=== PATIENT | female | born 1995 | race African-American/Black ===

== ENCOUNTER 2016-04-27 02:55 | Emergency (ER) | payer OTHER ==
[~2016-04-27] VITALS: Ht 170.2 cm; Wt 80.0 kg
[2016-04-27 03:00] VITALS: Ht 170.2 cm; Wt 80.0 kg
[2016-04-27] MEDS ORDERED: BUPIVACAINE 0.5 % 5 MG/1 ML MPF 30ML VIAL INFIL ONE (04:15)
[2016-04-27] MEDS ORDERED: XYLOCAINE 1%/SOD BICARB 20 ML VIAL INFIL ONE (04:15)
[2016-04-27] MEDS ORDERED: CEPHALEXIN 500MG HOME PACK 1 EA BTL PO ONE (07:00)
[2016-04-27] MEDS ORDERED: CEPHALEXIN MONOHYDRATE 250 MG CAP PO ONE (07:00)
[2016-04-27] MEDS ORDERED: NORCO 5/325MG HOME PACK PO ONE (07:00)
[2016-04-27] MEDS ORDERED: HYDR-5688 PO (07:07)
[2016-04-27] MEDS ORDERED: CEPH500C PO (07:07)
--- NOTE | 2016-04-27 07:09 | EMERGENCY ROOM VISIT NOTE ---
History First contact with patient: 04:05 Chief Complaint: FINGER PAIN Stated Complaint: FINGER INJURY History of Present Illness The patient is a 20 year old female who presents to the Emergency Department by private vehicle for evaluation of an injury to the LEFT middle finger. She reports that her fingertip became caught in the posterior aspect of the door resulting in laceration in injury. She reports a moderate amount of pain to the tip of the finger rates her pain a 10/10. She denies any other pain or injury to the affected finger. She reports no history of injury to this affected digit. Her tetanus status is up-to-date. She denies any associated hand pain, wrist pain, or forearm pain. The patient does admit to drinking alcohol today. She denies any other drug use. Review of Systems A complete 10-point Review of Systems was discussed with the patient, with pertinent positives and negatives listed in the History of Present Illness. All remaining Review of Systems questions can be considered negative unless otherwise specified. Social History Smoking Status: Current Some Day Smoker Smokeless Tobacco Use: No Alcohol Use: occasionally Drug Use: none Marital Status: single Housing Status: lives with roommate Occupation Status: [employer] student Current/Historical Medications Scheduled Cephalexin Monohydrate (Keflex), 500 MG PO QID Scheduled PRN Hydrocodone/Acetaminophen 5MG/325MG (Yaphank 5MG/325MG), 1-2 TABLET PO Q4H PRN for Pain Allergies Coded Allergies: No Known Allergies (Unverified , 04/27/16) Physical Exam Vital Signs Date Time Temp Pulse Resp B/P Pulse Ox O2 Delivery O2 Flow Rate FiO2 04/27/16 07:19 100 16 136/91 99 04/27/16 05:12 104 18 141/86 100 Room Air 04/27/16 03:00 125 24 157/99 98 Room Air Pain Rating (0-10): 10 Physical Exam VITAL SIGNS - Vital signs and nursing notes were reviewed. GENERAL - 20-year-old female appearing her stated age and in noticeable discomfort throughout the exam. Smells of alcohol. MUSCULOSKELETAL -laceration with partial palpitation noted to the tip of the LEFT third digit with transection through the midportion of the nail. Laceration measures a total of 2.5 cm and includes the nailbed. The tip of the finger flaps open. No deep structures appreciated. Moderately tender to palpation. Full range of motion at all joints appreciated. NEUROLOGIC - SENSORY: Spinothalamic tract was found to be intact with ability to discriminate sharp versus dull sensation at the level of the LEFT elbow down to the fingertips. No sensory deficits of the dorsal column were appreciated utilizing light touch for evaluation. VASCULAR - Capillary refill was brisk. +3/5 radial pulse palpated. Medical Decision & Procedures ER Provider Diagnostic Interpretation: Radiological imaging and reports were reviewed by myself. Radiologist's Interpretation as follows: LEFT THIRD FINGER 3 VIEWS CLINICAL HISTORY: Left third finger pain status post trauma COMPARISON: None. DISCUSSION: There is acute displaced fracture involving the tuft of the distal phalanx. The distal fragment is volarly displaced x 2 mm. There is an overlying soft tissue injury. The fine bony details obscured by an overlying bandage IMPRESSION: Acute displaced fracture involving the tuft of the distal phalanx. Medications Administered Medications (Trade) Dose Ordered Sig/Tali Route Start Time Stop Time Status Last Admin Dose Admin Cephalexin Monohydrate (Keflex Cap) 500 mg NOW ONCE PO 04/27/16 07:00 04/27/16 07:01 DC 04/27/16 07:17 500 MG Procedure Costs and benefits of performing primary wound closure versus no repair were discussed with the patient who verbalizes understanding. Verbal consent was obtained prior to performing the procedure. 5.0 cc of a 1-1 solution of 1% buffered lidocaine and 0.5% Marcaine was used to perform a digital block of the LEFT third digit. The wound was cleansed and prepped in the typical sterile fashion utilizing normal saline and Betadine. The wound was sterilely draped. Once proper anesthetization was established, the wound was further examined and demonstrated a laceration described above. No bony structures appreciated. The nail was removed first. The wound was copiously irrigated utilizing normal saline and Betadine. The nailbed was repaired using 5 simple interrupted 5-0 Vicryl sutures. The remaining laceration was repaired using 8 simple interrupted 5-0 nylon sutures with the edges well approximated. A sterile silver wrapper was used to insert into the nail matrix and tacked into place using 4 simple interrupted 5-0 nylon sutures. Patient tolerated the procedure well. No complications were met. The wound was cleansed and dressed with a Bacitracin dressing. A metal splint was applied to the finger for comfort. ED Course Patient was seen and evaluated by myself. X-ray was obtained of the affected finger. Digital block was performed and laceration repair was performed as described above. The patient was treated with Keflex. I discussed the case with Dr. Butler who happens to be corrections lieutenant for surgery. The patient will follow-up in office for any possible need for intervention. Patient was educated on worrisome symptoms for return visit to the emergency department. Patient discharged home in good condition. Medical Decision Given the patient's presentation and exam findings, I did elect to perform the above-mentioned workup. The patient presents stating with partial limitation of the tip of the LEFT third digit. Thankfully, the laceration was repaired and well approximated. She was covered with antibiotics after copious irrigation of the wound. She will follow-up with orthopedic hand surgery this week for recheck. She will return for any changing/worsening symptoms. Patient discharged home in good condition. In the evaluation and treatment of this patient, the following differential diagnoses were considered: Finger Fracture, Finger Dislocation, Finger Sprain, Finger Contusion, Jersey Finger, or Mallet Finger. Impression Primary Impression: Partial traumatic transphalangeal amputation of left middle finger, initial encounter Departure Information Dispostion Home / Self-Care Condition GOOD Prescriptions Hydrocodone/Acetaminophen 5MG/325MG (Yaphank 5MG/325MG) Tab 1-2 TABLET PO Q4H Y for Pain, #20 TAB For Initial Treatment Prov: Abel Gallagher PA-C 04/27/16 Cephalexin Monohydrate (Keflex) 500 Mg Cap 500 MG PO QID for 7 Days, #28 CAP Prov: Abel Gallagher PA-C 04/27/16 Referrals No Doctor, Assigned (PCP) Fabricio Butler MD Patient Instructions ED Laceration Amputation Finger Tip Open Tx, My [facility] Additional Instructions You have received 8 sutures on your LEFT Middle Finger. These sutures are NOT dissolvable and WILL need to be removed by a health care provider in 14 days. You can return to the Emergency Department or contact your Primary Care Provider to have the sutures removed. You NEED to follow-up with Dr. Butler of Orthopedic Hand Surgery for continued management of your injury. Please wear the splint for comfort until the sutures are removed. Proper wound care is essential for adequate wound healing and infection prevention. You can shower and clean the wound with soap and water. Do not scour over the wound, pat dry with a towel. Do not submerse the wound (i.e. bathe or dish wash) until the sutures have been removed. You can use an antibiotic ointment with a dressing over the wound for the next 3-4 days. After this time you may leave the wound dry and open to the air. If crust develops over the wound you can use a Q-tip to apply a 1:1 peroxide:water solution to clean the wound. Look for signs of infection of the wound including: increased pain, swelling, foul discharge, streaking, or increased temperature. If any of these are noticed you should return to the Emergency Department for further assessment and treatment. As with any laceration you may have received nerve damage to the surrounding tissues. This damage may or may not be permanent. You should keep the area covered with sunscreen for the first 6 months to 1 year when at risk for exposure to help minimize scarring. You can also use scar reducing creams or Vitamin E oil to help minimize scarring. You have been prescribed Yaphank to be used for pain control. This is a narcotic medication. You cannot drive or consume alcohol while on this medicine. This medicine should only be used for pain that cannot be controlled with over-the- counter pain medicines. You were prescribed Keflex to be taken as prescribed. This is an antibiotic. All antibiotics have the potential to cause diarrhea. Stop this medication and contact a medical provider if you were to develop any significant adverse side effects including: wheezing, shortness of breath, passing out, vomiting, or a diffuse rash. Always take antibiotics as directed and COMPLETE the ENTIRE course regardless of the improvement of your symptoms. For pain control, you can use the following [id number] medicines (if >12 yo): - Regular strength (325mg/tab) Tylenol (acetaminophen) 2 tabs every 4-6 hours as needed. Do not exceed 12 tablets in a 24 hour period. Avoid taking more than 4 grams (4000 mg) of Tylenol per day. This includes any other sources of acetaminophen you may take on a regular basis. - Regular strength (200 mg/tab) Advil (ibuprofen) 1-2 tabs every 4-6 hours as needed. Do not exceed a dose of 3200 mg per day. Return to the emergency department if your symptoms worsen despite treatment course outlined above.
[2016-04-27 07:19] VITALS: BP 136/91; PULSE 100; O2SAT 99
--- NOTE | 2016-04-27 07:52 | DIAGNOSTIC IMAGING REPORT ---
LEFT THIRD FINGER 3 VIEWS CLINICAL HISTORY: Left third finger pain status post trauma COMPARISON: None. DISCUSSION: There is acute displaced fracture involving the tuft of the distal phalanx. The distal fragment is volarly displaced x 2 mm. There is an overlying soft tissue injury. The fine bony details obscured by an overlying bandage IMPRESSION: Acute displaced fracture involving the tuft of the distal phalanx. Electronically signed by: Jeet Richardson M.D. 04/27/2016 7:51 AM Dictated Date/Time: 04/27/2016 7:50 AM
== END 2016-04-27 07:33 | disposition home or self-care (01) ==
LOC: C.EDB 02:57 → C.EDC 07:33
DX: S68.623A Partial traumatic transphalangeal amputation of left middle finger, initial encounter (principal); W23.0XXA Caught, crushed, jammed, or pinched between moving objects, initial encounter; F17.210 Nicotine dependence, cigarettes, uncomplicated

== ENCOUNTER 2016-05-20 16:22 | Emergency (ER) | payer OTHER ==
[~2016-05-20] VITALS: Ht 170.2 cm; Wt 81.3 kg
[~2016-05-20 16:22] MED LIST: HYDR-5688 PO
[2016-05-20 16:29] VITALS: TEMP 36.7; Ht 170.2 cm; Wt 81.3 kg
[2016-05-20 18:52] LABS: BASO % 0.4 %; BASO ABS # 0.02 K/uL (0-0.2); COMPLETE YES; EOS % 1.1 %; HEMATOCRIT 41.1 % (37-47); LYMPH % 29.4 %; LYMPH ABS # 1.64 K/uL (1.2-3.4); MEAN CELL VOLUME 84.7 fL (80-100); MEAN CORPUSCULAR HEMOGLOBIN 27.8 pg (25-34); MEAN CORPUSCULAR HGB CONC 32.8 g/dl (32-36); MEAN PLATELET VOLUME 10.1 fL (7.4-10.4); MONO % 8.1 %; PLATELET COUNT 235 K/uL (130-400); RED BLOOD COUNT 4.85 M/uL (4.2-5.4); WHITE BLOOD COUNT 5.57 K/uL (4.8-10.8)
[2016-05-20 19:05] LABS: URINE APPEARANCE CLOUDY (CLEAR); URINE BILIRUBIN NEG (NEG); URINE COLOR RED; URINE NITRITE NEG (NEG); URINE PH 8.5 (4.5-7.5); URINE SPECIFIC GRAVITY 1.028 (1.000-1.030); UROBILINOGEN NEG (NEG); ZZUR CULT IF INDIC CLEAN CATCH NO
[2016-05-20 19:07] LABS: MANUAL MICROSCOPIC REQUIRED? NO; REVIEW REQ? NO
[2016-05-20 19:14] LABS: SULFASALICYLIC ACID POS (NEG)
[2016-05-20 19:36] LABS: ALB/GLOB RATIO 0.8 (0.9-2); BUN/CREATININE RATIO 11.2 (10-20); CALCIUM 8.7 mg/dl (8.5-10.1); CREATININE 0.94 mg/dl (0.60-1.20)
--- NOTE | 2016-05-20 20:18 | DIAGNOSTIC IMAGING REPORT ---
ULTRASOUND INCLUDING TRANSABDOMINAL AND ENDOVAGINAL SCANNING CLINICAL HISTORY: positive test, vaginal bleeding, cramping COMPARISON STUDY: No previous studies for comparison. FINDINGS: The uterus measured 91 x 42 x 57 mm. Endometrial stripe measured 13 mm. No intrauterine gestational sac was visualized. The right ovary measured 30 x 23 x 30 mm. Right ovarian follicles are visualized. The left ovary measured 35 x 14 x 24 mm. Left ovarian follicles were visualized. There is no ultrasonographic evidence of ovarian torsion. There is trace free fluid, likely physiologic. IMPRESSION: 1. No evidence of intrauterine gestation. Diagnostic considerations therefore include early intrauterine gestation, spontaneous , or ectopic . Correlation with serial quantitative beta hCGs is recommended. Electronically signed by: Jeet Richardson M.D. 05/20/2016 8:17 PM Dictated Date/Time: 05/20/2016 8:14 PM
--- NOTE | 2016-05-20 21:05 | EMERGENCY ROOM VISIT NOTE ---
History First contact with patient: 18:05 Chief Complaint: ED VAG BLEEDING Stated Complaint: - VAGINAL BLEEDING History of Present Illness The patient is a 20 year old female who presents to the Emergency Room with complaints of vaginal bleeding. The patient states that she took 2 tests which were both positive last week. She states her last menstrual period was the first week of April. The patient states that she has had vaginal spotting for approximately one week, but developed heavier bleeding and clots last night. She does report she has had some abdominal cramps. The patient has had 1 previous and had a chemical . The patient had been on control pills but is no longer taking them because she does not have prescription. She does not have a local [facility]. The patient denies any fevers/ chills, abnormal vaginal discharge or urinary symptoms. She is unsure of her blood type. Review of Systems A complete 10-point Review of Systems was discussed with the patient, with pertinent positives and negatives listed in the History of Present Illness. All remaining Review of Systems questions can be considered negative unless otherwise specified. Social History Smoking Status: Never Smoker Alcohol Use: occasionally Drug Use: none Marital Status: single Housing Status: lives with roommate Occupation Status: [employer] student Current/Historical Medications No Active Prescriptions or Reported Meds Allergies Coded Allergies: No Known Allergies (Unverified , 05/20/16) Physical Exam Vital Signs Date Time Temp Pulse Resp B/P Pulse Ox O2 Delivery O2 Flow Rate FiO2 05/20/16 21:15 82 16 129/82 100 05/20/16 20:15 78 16 143/97 100 Room Air 05/20/16 18:54 83 14 132/79 99 Room Air 05/20/16 16:29 36.7 90 18 159/103 99 Room Air Physical Exam VITALS: Vitals are noted on the nurse's note and reviewed by myself. Vital signs stable. GENERAL: This is a 20-year-old female, in no acute distress, nondiaphoretic, well-developed well-nourished. SKIN: Capillary reflex less than 2 seconds. HEENT: Normocephalic. PERRLA. EOMI. Nares patent. Mucous membranes moist. Neck is supple without nuchal rigidity. HEART: Regular rate and rhythm without murmurs gallops or rubs. LUNGS: Clear to auscultation bilaterally without wheezes, rales or rhonchi. ABDOMEN: Positive bowel sounds x 4. Soft, nontender to palpation. NEURO: Patient was alert and oriented to person place and time. Medical Decision & Procedures ER Provider Diagnostic Interpretation: ULTRASOUND INCLUDING TRANSABDOMINAL AND ENDOVAGINAL SCANNING CLINICAL HISTORY: positive test, vaginal bleeding, cramping COMPARISON STUDY: No previous studies for comparison. FINDINGS: The uterus measured 91 x 42 x 57 mm. Endometrial stripe measured 13 mm. No intrauterine gestational sac was visualized. The right ovary measured 30 x 23 x 30 mm. Right ovarian follicles are visualized. The left ovary measured 35 x 14 x 24 mm. Left ovarian follicles were visualized. There is no ultrasonographic evidence of ovarian torsion. There is trace free fluid, likely physiologic. IMPRESSION: 1. No evidence of intrauterine gestation. Diagnostic considerations therefore include early intrauterine gestation, spontaneous , or ectopic . Correlation with serial quantitative beta hCGs is recommended. Laboratory Results 05/20/16 18:39 Red Blood Count 4.85, Mean Corpuscular Volume 84.7, Mean Corpuscular Hemoglobin 27.8, Mean Corpuscular Hemoglobin Concent 32.8, Mean Platelet Volume 10.1, Neutrophils (%) (Auto) 61.0, Lymphocytes (%) (Auto) 29.4, Monocytes (%) (Auto) 8.1, Eosinophils (%) (Auto) 1.1, Basophils (%) (Auto) 0.4, Neutrophils # (Auto) 3.40, Lymphocytes # (Auto) 1.64, Monocytes # (Auto) 0.45, Eosinophils # (Auto) 0.06, Basophils # (Auto) 0.02 05/20/16 18:38 Test 05/20/16 18:38 05/20/16 18:39 05/20/16 18:50 Anion Gap 7.0 mmol/L (3-11) Est Creatinine Clear Calc Drug Dose 103.9 ml/min Estimated GFR () 100.5 Estimated GFR (Non- 86.7 BUN/Creatinine Ratio 11.2 (10-20) Calcium Level 8.7 mg/dl (8.5-10.1) Total Bilirubin 0.4 mg/dl (0.2-1) Aspartate Amino Transf (AST/SGOT) 19 U/L (15-37) Alanine Aminotransferase (ALT/SGPT) 17 U/L (12-78) Alkaline Phosphatase 59 U/L (45-117) Total Protein 8.1 gm/dl (6.4-8.2) Albumin 3.5 gm/dl (3.4-5.0) Globulin 4.6 gm/dl (2.5-4.0) Albumin/Globulin Ratio 0.8 (0.9-2) Chemistry Specimen Hemolysis White Blood Count 5.57 K/uL (4.8-10.8) Red Blood Count 4.85 M/uL (4.2-5.4) Hemoglobin 13.5 g/dL (12.0-16.0) Hematocrit 41.1 % (37-47) Mean Corpuscular Volume 84.7 fL (80-100) Mean Corpuscular Hemoglobin 27.8 pg (25-34) Mean Corpuscular Hemoglobin Concent 32.8 g/dl (32-36) Platelet Count 235 K/uL (130-400) Mean Platelet Volume 10.1 fL (7.4-10.4) Neutrophils (%) (Auto) 61.0 % Lymphocytes (%) (Auto) 29.4 % Monocytes (%) (Auto) 8.1 % Eosinophils (%) (Auto) 1.1 % Basophils (%) (Auto) 0.4 % Neutrophils # (Auto) 3.40 K/uL (1.4-6.5) Lymphocytes # (Auto) 1.64 K/uL (1.2-3.4) Monocytes # (Auto) 0.45 K/uL (0.11-0.59) Eosinophils # (Auto) 0.06 K/uL (0-0.5) Basophils # (Auto) 0.02 K/uL (0-0.2) RDW Standard Deviation 47.7 fL (36.4-46.3) RDW Coefficient of Variation 15.2 % (11.5-14.5) Immature Granulocyte % (Auto) 0.0 % Immature Granulocyte # (Auto) 0.00 K/uL (0.00-0.02) Human Chorionic Gonadotropin, Quant 653 mIU/mL Urine Color RED Urine Appearance CLOUDY (CLEAR) Urine pH 8.5 (4.5-7.5) Urine Specific [place] 1.028 (1.000-1.030) Urine Protein 1+ (NEG) Urine Glucose (UA) NEG (NEG) Urine Ketones NEG (NEG) Urine Occult Blood 3+ (NEG) Urine Nitrite NEG (NEG) Urine Bilirubin NEG (NEG) Urine Urobilinogen NEG (NEG) Urine Leukocyte Esterase SMALL (NEG) Urine WBC (Auto) 1-5 /hpf (0-5) Urine RBC (Auto) >30 /hpf (0-4) Urine Hyaline Casts (Auto) 1-5 /lpf (0-5) Urine Epithelial Cells (Auto) 10-20 /lpf (0-5) Urine Bacteria (Auto) NEG (NEG) Medical Decision Differential diagnosis includes spontaneous , ectopic , The patient was evaluated as above. Labs were drawn and IV access was obtained. Imaging studies were performed and read by radiology as above. The patient was reassessed multiple times during their stay in the emergency department and remained in stable condition. The patient is a 20-year-old female who presents today complaining of vaginal bleeding during . Labs revealed a beta hCG of 653. Labs were otherwise unremarkable, with no leukocytosis or anemia. Urinalysis was not suggestive of infection. Pelvic ultrasound did not show any intrauterine . I do fill of this likely represents a spontaneous given the amount of bleeding that the patient has had. She is blood type A+ and will not require RhoGAM. She is hemodynamically stable. The patient was informed that she will need 48 hour follow-up and was given the contact information for [facility]. She was instructed to return here if she is a not able to keep an appointment with them. All findings and the treatment plan were discussed with the patient. Based on the patient's presentation, lab results, and imaging studies, I feel the patient is stable for outpatient treatment. The patient's case was reviewed with Dr. Villeda, ED attending physician, who agreed with my assessment and treatment plan. Discharge instructions were reviewed with the patient. The patient verbalized understanding of my assessment and treatment plan and was discharged home in good condition. Impression Primary Impression: Threatened Departure Information Dispostion Home / Self-Care Condition GOOD Prescriptions No Active Prescriptions or Reported Meds Referrals No Doctor, Assigned (PCP) Madhavi Hoover M.D. Patient Instructions My [facility] Additional Instructions Call [facility] tomorrow to schedule a follow-up appointment. You should be seen within 48 hours for a follow-up. You may follow-up at [facility] or at [facility]. If they are unable to see you, you may return here for a follow-up visit. Tylenol as needed for pain. Return to the emergency department with worsening pain, worsening bleeding, fevers or any other new/concerning symptoms.
[2016-05-20 21:15] VITALS: BP 129/82; PULSE 82; O2SAT 100
== END 2016-05-20 21:15 | disposition home or self-care (01) ==
LOC: C.EDB 16:25 → C.EDC 21:15
DX: O20.0 Threatened abortion (principal)

== ENCOUNTER → 2016-05-22 | Outpatient (CLI) | payer OTHER | END | disposition home or self-care (01) | LOC: C.LAB1850 14:02 | PROVIDERS: ATTEND Physician Assistant | DX: O03.9 Complete or unspecified spontaneous abortion without complication (principal) ==

== ENCOUNTER → 2016-05-29 | Outpatient (CLI) | payer OTHER | END | disposition home or self-care (01) | LOC: C.LAB1850 11:31 | PROVIDERS: ATTEND Physician Assistant | DX: O03.9 Complete or unspecified spontaneous abortion without complication (principal); Z3A.00 Weeks of gestation of pregnancy not specified ==

== ENCOUNTER → 2016-06-05 | Outpatient (CLI) | payer OTHER | END | disposition home or self-care (01) | LOC: C.PAPS 14:46 | PROVIDERS: ATTEND Physician Assistant | DX: Z01.419 Encounter for gynecological examination (general) (routine) without abnormal findings (principal) ==

== ENCOUNTER → 2016-06-05 | Outpatient (CLI) | payer OTHER ==
[2016-06-08 03:06] LABS: CHLAMYDIA TRACH RNA*** NOT DETECTED (NOT DETECTED); GC (NEIS GONORRHOEAE)RNA** NOT DETECTED (NOT DETECTED)
== END | disposition home or self-care (01) ==
LOC: C.LAB1850 11:49
PROVIDERS: ATTEND Physician Assistant
DX: Z11.3 Encounter for screening for infections with a predominantly sexual mode of transmission (principal); O03.9 Complete or unspecified spontaneous abortion without complication